=== PATIENT | male | born 1990 ===

== ENCOUNTER 2020-02-08 12:39 | Emergency (ER) | payer SELFPAY ==
[2020-02-08 12:49] VITALS: BP 119/60; PULSE 76; RESP 20; TEMP 36.4; O2SAT 98; BMI 22.5
[2020-02-08] MEDS: acetaminophen 500 mg Tablet 1000 MG PO (14:40)
[2020-02-08] MEDS: tizanidine 4 mg Tablet PO (14:41)
[2020-02-08] MEDS: ondansetron 2 mg/ML SDV 2 mL 4 MG IVP (14:42)
[2020-02-08] MEDS: ketorolac 30 mg/mL INJ 10 MG IVP (14:42)
--- NOTE | 2020-02-08 15:18 | ED_ITS ---
HPI - Medical Clearance General Chief complaint: Medical Clearance Stated complaint: methadone withdrawls Time Seen by Provider: 02/08/20 14:04 History of Present Illness HPI Narrative: Mr. Earl is a nice 29-year-old male who comes in after he took Suboxone today to replace methadone that he is missing and taking for chronic opioid addiction. Patient states he is due to get his methadone prescription tomorrow. He gets this weekly. He states he took 1 extra dose and he took the Suboxone this morning to help take the edge off. Since taking the Suboxone he has been having symptoms of irritability, sweats, nausea and generalized malaise. He is unaware of anything that makes his symptoms better or worse. Related Information Home Medications Medication Instructions Recorded Confirmed ibuprofen [Advil] 200 - 800 mg PO PRN 02/08/20 02/08/20 Allergies Allergy/AdvReac Type Severity Reaction Status Date / Time No Known Allergies Allergy Verified 02/08/20 14:11 Course Course Pharmacology was reviewed with the pharmacist. The naloxone component of the Suboxone in a 4 mg half ribbon which he took should wear off in approximately 12 hours. The buprenorphine component should wear off in 16 to 27 hours. The patient should be able to start his methadone tomorrow morning as scheduled. Patient's physical exam was unremarkable. He is normocephalic, atraumatic, pupils equal round and reactive to light and accommodation, mucous membranes are pink and moist. Neck is supple without nuchal rigidity or meningismus, heart had a regular rate and rhythm by auscultation, without murmur, rub, gallop, click or thrill. Lungs were clear to auscultation bilaterally without wheeze, rub or rhonchi. Abdomen was soft and nontender to palpation without mass or organomegaly. There is no rebound, guarding or rigidity. Musculoskeletal the patient had no cyanosis, clubbing or edema and he had full range of motion of all his extremities. Neurologically he was alert and oriented to person, place, time and situation. Cranials 2 through 12 are grossly intact and he had no motor or sensory deficits. Patient received IV fluids here with tizanidine along with Tylenol and Motrin and he is agreeable to go home once his IV fluids are finished. Vital Signs Temperature 97.5 F L 02/08/20 12:49 Pulse Rate 84 02/08/20 16:28 Respiratory Rate 18 02/08/20 16:28 Blood Pressure 134/79 02/08/20 16:28 Pulse Oximetry 99 02/08/20 16:28 MDM - Medical Clearance MDM Narrative Medical decision making narrative: Patient took buprenorphine and the locks on combination Suboxone which the naloxone likely briefly distributed the methadone from the patient's opiate receptors. The buprenorphine likely bided and will stay there until it wears off completely in 16 to 27 hours according to pharmacy. Patient should be clear to take his methadone tomorrow. Patient understands this and will follow-up for that. He is feeling better with IV fluids he is gotten at this point and will receive more before discharge. Discharge Plan Discharge Patient Disposition: Home, Self-Care Clinical Impression: Opiate addiction Qualifiers: Substance use status: uncomplicated Qualified Code(s): F11.20 - Opioid depnori caceres, uncomplicated Condition: Stable Prescriptions: No Action Advil 200 mg Tablet 200 - 800 mg PO PRN RF: 0 Discharge Orders: Discharge Order (Routine); Ordered 02/08/20 Ordered By: Vaishnavi Beaver Discharge Diet: Usual diet Discharge Activity: Increase activity as tolerated Patient Instructions: Opioid Withdrawal (ED) Activity Restrictions/Additional Instructions: Please return to the ER immediately for any of the signs or symptoms listed on your discharge instruction sheets, worsening/changing of your symptoms, you are not getting better as quickly as expected, or for ANY other cause or concerns. Discharge Date/Time: 02/08/20 16:29
[2020-02-08] MEDS: sodium chloride 0.9% 1,000 ML 999 ML IV (15:27)
[2020-02-08 16:28] VITALS: BP 134/79; PULSE 84; RESP 18; O2SAT 99
== END 2020-02-08 16:29 | disposition home or self-care (01) ==
PROVIDERS: Emergency Provider Emergency Medicine
DX: F11.20 Opioid dependence, uncomplicated (principal)
CPT/HCPCS: 96361; 96374; 96375; 99282; 99283; J1885; J2405; J7030